=== PATIENT | female | born 1955 | race Caucasian/White ===

== ENCOUNTER → 2025-05-14 | Outpatient (REF) | payer BC ==
[~2025-05-14] MED LIST: REGADENOSON 0.4 MG/5 ML SYR IV ONE
== END ==
LOC: NM 07:27
PROVIDERS: ATTEND Internal Medicine Cardiovascular Disease
DX: I25.84 Coronary atherosclerosis due to calcified coronary lesion (principal); I87.2 Venous insufficiency (chronic) (peripheral)
CPT/HCPCS: 78452; 93017; A9502; J2785